=== PATIENT | female | born 1975 | race Caucasian/White ===

== ENCOUNTER 2022-07-26 12:29 | Emergency (ER) | payer MEDICAID ==
[~2022-07-26] VITALS: Ht 149.9 cm; Wt 59.4 kg
[2022-07-26 12:43] VITALS: BP 113/78
--- NOTE | 2022-07-26 13:42 | NUR ---
Female Online Merchandising Coordinator accompanied female patient for Rectal Exam.
[2022-07-26] MEDS ORDERED: IBUP-2213 PO (13:51)
--- NOTE | 2022-07-26 13:58 | NUR ---
46/F PRESENTS TO ED WITH C/O PAIN DURING BOWEL MOVEMENTS AND BLOOD IN STOOL, STATES SHE BELIEVES SHE HAS HEMMORHOIDS. TOOK TYLENOL WITH NO RELIEF, DENIES ABD PAIN, N/V/D.
--- NOTE | 2022-07-26 14:06 | NUR ---
Patient discharged with v/s stable. Written and verbal after care instructions ABOUT HEMORRHOIDS given and explained. Patient alert, oriented and verbalized understanding of instructions. Ambulatory with steady gait. All questions addressed prior to discharge. ID band removed. Patient advised to follow up with PMD. Rx of IBUPROFEN given. Patient educated on indication of medication including possible reaction and side effects. Opportunity to ask questions provided and answered.
== END 2022-07-26 14:06 | disposition home or self-care (01) ==
LOC: MED 12:29
DX: K64.9 Unspecified hemorrhoids (principal)
CPT/HCPCS: 99282

== ENCOUNTER 2023-01-10 10:32 | Emergency (ER) | payer MEDICAID ==
[~2023-01-10] VITALS: Ht 147.3 cm; Wt 61.2 kg
[~2023-01-10 10:32] MED LIST: IBUP-2213 PO
[2023-01-10 10:48] VITALS: BP 116/76
[2023-01-10 11:35] LABS: BILIRUBIN,URINE NEGATIVE (NEGATIVE); BLOOD, URINE 3+ (NEGATIVE); LEUKOCYTE ESTERASE ,URINE 2+ (NEGATIVE); NITRITE, URINE POSITIVE (NEGATIVE); UGLUCOSE TRACE (NEGATIVE)
[2023-01-10 11:36] LABS: APPEARANCE,URINE CLOUDY (CLEAR); COLOR,URINE BLOODY (YELLOW)
[2023-01-10 11:44] LABS: RBC,URINE >100 /HPF (0-5)
[2023-01-10 11:45] LABS: WBC,URINE 0-5 /HPF (0-5)
--- NOTE | 2023-01-10 12:00 | NUR ---
47 Y/O FEMALE BIB SELF C/O LOW BACK PAIN X3 DAYS, HAS BEEN PUTTING ON A CREAM FOR PAIN ON THE AREA. DENIES ANY FEVERS, [place], [place], [place] NKA PMH: DENIES
[2023-01-10] MEDS ORDERED: NITR100C7 PO (12:17)
[2023-01-10] MEDS ORDERED: CAPS1ADH5 TP (12:17)
[2023-01-10] MEDS ORDERED: NAPR-1704 PO (12:17)
--- NOTE | 2023-01-10 12:26 | NUR ---
Patient discharged with v/s stable. Written and verbal after care instructions ABOUT UTI AND LOW BACK PAIN given and explained. Patient alert, oriented and verbalized understanding of instructions. Ambulatory with steady gait. All questions addressed prior to discharge. ID band removed. Patient advised to follow up with PMD. Rx of NAPROXEN, MACROBID, SALON PAS given. Patient educated on indication of medication including possible reaction and side effects. Opportunity to ask questions provided and answered.
== END 2023-01-10 12:26 | disposition home or self-care (01) ==
LOC: MED 10:32
DX: S39.012A Strain of muscle, fascia and tendon of lower back, initial encounter (principal); N39.0 Urinary tract infection, site not specified; Z79.899 Other long term (current) drug therapy; X58.XXXA Exposure to other specified factors, initial encounter; Y93.89 Activity, other specified; Y92.89 Other specified places as the place of occurrence of the external cause; Y99.8 Other external cause status
CPT/HCPCS: 81001; 81025; 87086; 99283

== ENCOUNTER 2023-08-16 18:27 | Emergency (ER) | payer MEDICAID ==
[~2023-08-16 18:27] MED LIST changes: +CAPS1ADH5 TP; +NAPR-1704 PO; +NITR100C7 PO
== END 2023-08-16 22:16 | disposition left against medical advice (07) ==
LOC: MED 18:27
DX: R51.9 Headache, unspecified (principal); Z53.21 Procedure and treatment not carried out due to patient leaving prior to being seen by health care provider